=== PATIENT | female | born 1985 | race African-American/Black ===

== ENCOUNTER 2017-01-11 18:11 | Emergency (ER) | payer SELFPAY ==
[~2017-01-11] VITALS: Ht 170.2 cm; Wt 99.0 kg
[2017-01-11 19:01] VITALS: BP 93/56
== END 2017-01-11 23:00 | disposition left against medical advice (07) ==
LOC: ER 18:11
DX: M79.644 Pain in right finger(s) (principal); Z53.21 Procedure and treatment not carried out due to patient leaving prior to being seen by health care provider; Z33.1 Pregnant state, incidental

== ENCOUNTER 2017-06-29 04:24 | Inpatient (IN) | payer MEDICAID ==
[~2017-06-29] VITALS: Ht 170.2 cm; Wt 104.3 kg
[2017-06-29] MEDS ORDERED: DEXT 5%/LR + PITOCIN 20UNITS/L 1,000 ML IV SCH ×2 (04:57→21:30)
[2017-06-29] MEDS ORDERED: BUTORPHANOL TARTRATE 2 MG/ML VIAL IV PRN (05:00)
[2017-06-29] MEDS ORDERED: NALOXONE HCL 0.4 MG/ML 1ML VIAL IM PRN (05:00)
[2017-06-29] MEDS ORDERED: LIDOCAINE HCL 1% 20ML VIAL (Pyxis) INJ INFIL SCH (05:00)
[2017-06-29] MEDS ORDERED: DEXTROSE IV SCH (05:30)
[2017-06-29] MEDS ORDERED: WATER IV SCH (05:30)
[2017-06-29] MEDS ORDERED: PENICILLIN POTASSIUM IV SCH (05:30)
[2017-06-29 05:45] LABS: CLARITY URINE CLEAR (CLEAR); COLOR URINE YELLOW (YELLOW); KETONES URINE TRACE (NEGATIVE); LEUKOCYTE ESTERASE URINE 2+ (NEGATIVE); NITRITE URINE NEGATIVE (NEGATIVE); OCCULT BLOOD URINE 3+ (NEGATIVE); PROTEIN URINE NEGATIVE (NEGATIVE); SPECIFIC GRAVITY URINE 1.006 (1.005-1.030); UROBILINOGEN URINE 0.2 E.U./dL (0.2-1.0)
[2017-06-29 06:11] LABS: *AMPHETAMINES SCREEN URINE NEGATIVE (NEGATIVE); *BARBITURATES SCREEN URINE NEGATIVE (NEGATIVE); *BENZODIAZEPINES SCREEN URINE NEGATIVE (NEGATIVE); *COCAINE SCREEN URINE NEGATIVE (NEGATIVE); METHADONE URINE SCREEN NEGATIVE (NEGATIVE); OPIATES URINE SCREEN NEGATIVE (NEGATIVE); PHENCYCLIDINE URINE SCREEN NEGATIVE (NEGATIVE)
[2017-06-29 06:12] LABS: CANNABINOID URINE SCREEN PRESUMTIVE POSITIVE (NEGATIVE)
[2017-06-29 07:14] LABS: BASOPHILS % 0.4 % (0.0-2.0); EOSINOPHILS % 0.1 % (0.0-5.0); HEMATOCRIT. 38.1 % (36.0-48.0); HEMOGLOBIN. 12.8 g/dL (12.0-16.0); LYMPHOCYTES % 10.6 % (20.0-50.0); MEAN CORPUSCULAR HEMOGLOBIN 26.9 pg (28.0-32.0); MEAN CORPUSCULAR VOLUME 80.5 fL (81.0-99.0); NEUTROPHILS % 81.9 % (40.0-76.0); PLATELET 221 x1000/uL (130-400); RED BLOOD CELL COUNT 4.74 mill/uL (4.2-5.4); RED CELL DISTRIBUTION WIDTH 16.3 % (11.6-14.6)
[2017-06-29 08:11] LABS: RUBELLA IGG 48.3 IU/mL (4.99-10)
[2017-06-29 08:12] LABS: HEPATITIS B SURFACE ANTIGEN NEGATIVE
[2017-06-29] MEDS ORDERED: BUPIVACAINE HCL/NS/PF EPIDURAL 100 ML EP ONE ×2 (09:27→19:05)
[2017-06-29] MEDS ORDERED: FENTANYL CITRATE/PF 50MCG/ML 5ML VIAL ONE (09:27)
[2017-06-29] MEDS ORDERED: BUPIVACAINE HCL/PF 0.25% (2.5MG/ML) 10ML ONE (09:27)
[2017-06-29] MEDS: LACTATED RINGERS 1,000 ML IV SCH ×2 (09:57→19:17)
[2017-06-29] MEDS ORDERED: BUPIVACAINE HCL/NS/PF EPIDURAL 100 ML EP SCH (10:15)
[2017-06-29] MEDS: PENICILLIN G POTASSIUM 2.5 MMU in DEXTROSE 5% WATER 50 ML IV SCH ×3 (11:01→20:00)
[2017-06-29 12:52] LABS: PARTIAL THROMBOPLASTIN TIME 30.5 sec (23.4-31.0); PROTHROMBIN TIME 10.4 sec (9.4-11.6)
[2017-06-29 16:00] VITALS: BP 113/71
[2017-06-29] MEDS ORDERED: FENTANYL CITRATE/PF 50MCG/ML 2ML VIAL ONE (19:05)
[2017-06-29] MEDS ORDERED: LIDOCAINE HCL/PF 2% 20MG/ML 5 ML/VIAL ONE (21:56)
[2017-06-30] VITALS (8 sets, daily range): BP systolic 96–128; BP diastolic 62–102
[2017-06-30] MEDS ORDERED: LIDOCAINE HCL/PF 2% 20MG/ML 5 ML/VIAL ONE ×2 (00:12→02:00)
[2017-06-30] MEDS: PENICILLIN G POTASSIUM 2.5 MMU in DEXTROSE 5% WATER 50 ML IV SCH (00:24)
[2017-06-30] MEDS ORDERED: BISACODYL 10MG SUPP PR PRN (03:30)
[2017-06-30] MEDS ORDERED: DEXT 5%/LR + PITOCIN 20UNITS/L 1,000 ML IV SCH (03:30)
[2017-06-30] MEDS ORDERED: BENZOCAINE/LANOLIN/ALOE VERA SPRAY TOP PRN (03:30)
[2017-06-30] MEDS ORDERED: GLYCERIN/WITCH HAZEL LEAF MEDICATED PAD TOP PRN (03:30)
[2017-06-30] MEDS ORDERED: METHYLERGONOVINE MALEATE 0.2 MG/ML IM SCH (03:33)
[2017-06-30] MEDS: ACETAMINOPHEN WITH CODEINE 300/30MG TABLET PO PRN ×5 (04:30→22:56)
[2017-06-30] MEDS ORDERED: METHYLERGONOVINE MALEATE 0.2 MG/ML ONE (06:00)
[2017-06-30] MEDS: SIMETHICONE 80MG TABLET CHEW PO SCH ×5 (09:00→22:57)
[2017-06-30] MEDS: MAGNESIUM/ALUMINUM HYDROXIDE/SIMETHICONE 30ML UDC PO SCH ×4 (09:00→22:58)
[2017-06-30] MEDS: IBUPROFEN 400MG TABLET PO PRN ×2 (10:13→22:55)
[2017-06-30] MEDS: PRENATAL VIT/FE FUMARATE/FA TABLET PO SCH (10:15)
[2017-06-30] MEDS: DOCUSATE SODIUM 100MG CAPSULE PO SCH (22:58)
[2017-07-01] MEDS ORDERED: TETANUS, DIPHTHERIA, PERTUSSIS VAC/PF 0.5ML (>7YR OLD) IM ONE
[2017-07-01 07:16] LABS: BASOPHILS % 0.5 % (0.0-2.0); EOSINOPHILS % 0.1 % (0.0-5.0); HEMATOCRIT. 25.6 % (36.0-48.0); HEMOGLOBIN. 8.4 g/dL (12.0-16.0); LYMPHOCYTES % 18.1 % (20.0-50.0); MEAN CORPUSCULAR HEMOGLOBIN 26.3 pg (28.0-32.0); MEAN CORPUSCULAR VOLUME 80.7 fL (81.0-99.0); MEAN PLATELET VOLUME 8.5 fl (7.4-10.4); MONOCYTES % 5.4 % (2.0-8.0); NEUTROPHILS % 75.9 % (40.0-76.0); PLATELET 127 x1000/uL (130-400); RED BLOOD CELL COUNT 3.18 mill/uL (4.2-5.4); RED CELL DISTRIBUTION WIDTH 15.9 % (11.6-14.6)
[2017-07-01 07:36] VITALS: BP 97/52
[2017-07-01] MEDS: PRENATAL VIT/FE FUMARATE/FA TABLET PO SCH (08:48)
[2017-07-01] MEDS: SIMETHICONE 80MG TABLET CHEW PO SCH ×3 (13:30→22:18)
[2017-07-01] MEDS: FERROUS SULFATE 325MG TABLET PO SCH ×2 (13:30→18:12)
[2017-07-01] MEDS: IBUPROFEN 400MG TABLET PO PRN ×2 (13:36→22:19)
[2017-07-01 16:00] VITALS: BP 100/66
[2017-07-01] MEDS: MAGNESIUM/ALUMINUM HYDROXIDE/SIMETHICONE 30ML UDC PO SCH ×2 (17:00→22:18)
[2017-07-01 19:30] VITALS: BP 98/66
[2017-07-01] MEDS: DOCUSATE SODIUM 100MG CAPSULE PO SCH (22:18)
[2017-07-01 22:28] VITALS: BP 92/47
[2017-07-02 08:30] VITALS: BP 112/72
[2017-07-02] MEDS: PRENATAL VIT/FE FUMARATE/FA TABLET PO SCH (10:29)
[2017-07-02] MEDS: FERROUS SULFATE 325MG TABLET PO SCH (10:29)
[2017-07-06 04:19] LABS: CANNABINOID CONFIRMATION URINE Positive (.)
== END 2017-07-02 11:00 | disposition home or self-care (01) | DRG 560 ==
LOC: L&D 04:24 → OBSVTOIN 04:24 → 7EST PP/OB 06-30 05:30
PROVIDERS: ADMIT Obstetrics & Gynecology; ATTEND Obstetrics & Gynecology
PROC: 0KQM0ZZ Repair Perineum Muscle, Open Approach (ICD-10-PCS; 2017-06-30)
PROC: 3E0R3BZ Introduction of Anesthetic Agent into Spinal Canal, Percutaneous Approach (ICD-10-PCS; 2017-06-30)
PROC: 00HU33Z Insertion of Infusion Device into Spinal Canal, Percutaneous Approach (ICD-10-PCS; 2017-06-30)
PROC: 10E0XZZ Delivery of Products of Conception, External Approach (ICD-10-PCS; principal; 2017-06-30 02:32)
DX: O69.81X0 Labor and delivery complicated by cord around neck, without compression, not applicable or unspecified (principal); D62 Acute posthemorrhagic anemia; O90.81 Anemia of the puerperium; O77.0 Labor and delivery complicated by meconium in amniotic fluid; O70.1 Second degree perineal laceration during delivery; Z3A.38 38 weeks gestation of pregnancy; Z37.0 Single live birth
CPT/HCPCS: 36415; 80305; 80349; 81001; 85025; 85610; 85730; 86592; 86703; 86762; 86850; 86900; 87340; 90715; G0378; J0595; J2210; J2540; J2590; J3010; J3490; J7060; J7120; A4315

== ENCOUNTER 2019-08-28 10:51 | Observation (INO) | payer MEDICAID ==
[~2019-08-28] VITALS: Ht 170.2 cm; Wt 106.1 kg
[2019-08-28] MEDS ORDERED: PREN1TAB78 MT (12:55)
[2019-08-28] MEDS ORDERED: FOLI0.4T2 MT (12:55)
== END 2019-08-28 13:45 | disposition home or self-care (01) ==
LOC: 8 EST LDRP 10:51
PROVIDERS: ADMIT Specialist; ATTEND Specialist
DX: O62.9 Abnormality of forces of labor, unspecified (principal); Z3A.41 41 weeks gestation of pregnancy
CPT/HCPCS: 76815; 76818; 99281; G0378

== ENCOUNTER 2019-09-05 10:50 | Observation (INO) | payer MEDICAID ==
[~2019-09-05] VITALS: Ht 170.2 cm; Wt 106.1 kg
[~2019-09-05 10:50] MED LIST: FOLI0.4T2 MT; PREN1TAB78 MT
== END 2019-09-05 14:10 | disposition home or self-care (01) ==
LOC: 8 EST LDRP 10:50
PROVIDERS: ADMIT Obstetrics & Gynecology; ATTEND Obstetrics & Gynecology
DX: O26.893 Other specified pregnancy related conditions, third trimester (principal); R10.2 Pelvic and perineal pain; M54.5 Low back pain; Z3A.36 36 weeks gestation of pregnancy
CPT/HCPCS: 76805; 76818; 99281; G0378

== ENCOUNTER 2019-09-16 00:39 | Inpatient (IN) | payer MEDICAID ==
[~2019-09-16] VITALS: Ht 170.2 cm; Wt 104.3 kg
[2019-09-16] MEDS ORDERED: DEXT 5%/LR + PITOCIN 20UNITS/L 1,000 ML IV SCH ×2 (01:13→03:50)
[2019-09-16] MEDS ORDERED: METHYLERGONOVINE MALEATE 0.2 MG/ML IM PRN (01:15)
[2019-09-16] MEDS ORDERED: NALOXONE HCL 0.4 MG/ML 1ML VIAL IM PRN (01:15)
[2019-09-16] MEDS ORDERED: LIDOCAINE HCL 1% 20ML VIAL (Pyxis) INJ INFIL SCH (01:15)
[2019-09-16] MEDS: LACTATED RINGERS 1,000 ML IV SCH ×2 (01:29→02:50)
[2019-09-16] MEDS: BUTORPHANOL TARTRATE 2 MG/ML VIAL IV PRN ×2 (01:33→03:46)
[2019-09-16] MEDS ORDERED: AMPICILLIN 2,000 MG in SODIUM CHLORIDE 0.9% 100 ML IV SCH (02:00)
[2019-09-16 02:52] LABS: INR 0.9; PARTIAL THROMBOPLASTIN TIME 25.9 sec (23.4-31.0); PROTHROMBIN TIME 10.1 sec (9.6-11.0)
[2019-09-16 03:13] LABS: BASOPHILS % 0.2 % (0.0-2.0); EOSINOPHILS % 0.8 % (0.0-5.0); HEMATOCRIT. 37.5 % (36.0-48.0); HEMOGLOBIN. 12.3 g/dL (12.0-16.0); LYMPHOCYTES % 25.5 % (20.0-50.0); MEAN CORPUSCULAR HEMOGLOBIN 25.9 pg (28.0-32.0); MEAN CORPUSCULAR VOLUME 78.5 fL (81.0-99.0); MEAN PLATELET VOLUME 8.3 fl (7.4-10.4); NEUTROPHILS % 66.5 % (40.0-76.0); PLATELET 351 x1000/uL (130-400); RED BLOOD CELL COUNT 4.77 mill/uL (4.2-5.4); RED CELL DISTRIBUTION WIDTH 15.8 % (11.6-14.6)
[2019-09-16 03:26] LABS: HEPATITIS B SURFACE ANTIGEN NEGATIVE
[2019-09-16] MEDS ORDERED: RHO(D) IMMUNE GLOBULIN 300 MCG/SYR IM PRN (04:00)
[2019-09-16] MEDS ORDERED: IBUPROFEN 400MG TABLET PO PRN (04:00)
[2019-09-16 06:00] VITALS: BP 111/70
[2019-09-16 06:46] LABS: CLARITY URINE CLEAR (CLEAR); COLOR URINE YELLOW (YELLOW); KETONES URINE NEGATIVE (NEGATIVE); LEUKOCYTE ESTERASE URINE TRACE (NEGATIVE); NITRITE URINE NEGATIVE (NEGATIVE); OCCULT BLOOD URINE NEGATIVE (NEGATIVE); PROTEIN URINE NEGATIVE (NEGATIVE); SPECIFIC GRAVITY URINE 1.021 (1.005-1.030); UROBILINOGEN URINE 0.2 E.U./dL (0.2-1.0)
[2019-09-16 07:03] LABS: *AMPHETAMINES SCREEN URINE NEGATIVE (NEGATIVE); *BARBITURATES SCREEN URINE NEGATIVE (NEGATIVE); PHENCYCLIDINE URINE SCREEN NEGATIVE (NEGATIVE)
[2019-09-16 07:04] LABS: *BENZODIAZEPINES SCREEN URINE NEGATIVE (NEGATIVE); *COCAINE SCREEN URINE NEGATIVE (NEGATIVE); METHADONE URINE SCREEN NEGATIVE (NEGATIVE); OPIATES URINE SCREEN NEGATIVE (NEGATIVE)
[2019-09-16 07:10] LABS: CANNABINOID URINE SCREEN PRESUMTIVE POSITIVE (NEGATIVE)
[2019-09-16 07:31] VITALS: BP 120/65
[2019-09-16] MEDS: IBUPROFEN 800MG TABLET PO PRN ×3 (08:34→21:54)
[2019-09-16 16:14] VITALS: BP 96/52
[2019-09-16 20:00] VITALS: BP 112/57
[2019-09-17 04:00] VITALS: BP 124/84
[2019-09-17 07:28] VITALS: BP 107/56
[2019-09-17 08:04] LABS: HEMATOCRIT. 33.1 % (36.0-48.0); MEAN CORPUSCULAR HEMOGLOBIN 26.3 pg (28.0-32.0); MEAN CORPUSCULAR VOLUME 79.3 fL (81.0-99.0); MEAN PLATELET VOLUME 8.1 fl (7.4-10.4); PLATELET 315 x1000/uL (130-400); RED BLOOD CELL COUNT 4.17 mill/uL (4.2-5.4); RED CELL DISTRIBUTION WIDTH 16.1 % (11.6-14.6)
[2019-09-17] MEDS: IBUPROFEN 800MG TABLET PO PRN (08:38)
[2019-09-17 12:55] LABS: NUCLEATED RED BLOOD CELLS 1 /100 WBC; PLATELET ESTIMATE NORMAL
[2019-09-17] MEDS ORDERED: IBUP-2030 PO (15:29)
[2019-09-21 04:11] LABS: CANNABINOID CONFIRMATION URINE Positive (.)
== END 2019-09-17 16:20 | disposition home or self-care (01) | DRG 560 ==
LOC: OBSVTOIN 00:39 → 8 EST LDRP 00:39 → 8EST 06:00
PROVIDERS: ADMIT Obstetrics & Gynecology; ATTEND Obstetrics & Gynecology
PROC: 10E0XZZ Delivery of Products of Conception, External Approach (ICD-10-PCS; principal; 2019-09-16)
PROC: 10907ZC Drainage of Amniotic Fluid, Therapeutic from Products of Conception, Via Natural or Artificial Opening (ICD-10-PCS; 2019-09-16)
DX: O99.324 Drug use complicating childbirth (principal); E66.01 Morbid (severe) obesity due to excess calories; O99.214 Obesity complicating childbirth; O77.0 Labor and delivery complicated by meconium in amniotic fluid; O69.81X0 Labor and delivery complicated by cord around neck, without compression, not applicable or unspecified; F12.10 Cannabis abuse, uncomplicated; Z37.0 Single live birth; Z3A.38 38 weeks gestation of pregnancy
CPT/HCPCS: 36415; 76815; 80305; 80349; 81003; 85025; 86592; 86703; 86762; 86850; 86900; 87340; 99281; G0378; J0290; J0595; J2590; J7050

== ENCOUNTER 2021-06-01 04:40 | Inpatient (IN) | payer MEDICAID ==
[~2021-06-01] VITALS: Ht 170.2 cm; Wt 117.9 kg
[~2021-06-01 04:40] MED LIST changes: -FOLI0.4T2 MT; +FOLI0.4T6 MT; +IBUP-2030 PO
[2021-06-01] MEDS ORDERED: BUTORPHANOL TARTRATE 2 MG/ML VIAL IV PRN (05:00)
[2021-06-01] MEDS ORDERED: DEXT 5%/LR + PITOCIN 20UNITS/L 1,000 ML IV SCH ×2 (05:00→08:30)
[2021-06-01] MEDS ORDERED: NALOXONE HCL 0.4 MG/ML 1ML VIAL IM PRN (05:00)
[2021-06-01] MEDS ORDERED: METHYLERGONOVINE MALEATE 0.2 MG/ML IM PRN (05:00)
[2021-06-01] MEDS ORDERED: CARBOPROST TROMETHAMINE 250 MCG/ML AMPUL IM PRN (05:00)
[2021-06-01] MEDS ORDERED: LACTATED RINGERS 1,000 ML IV SCH ×2 (05:00→05:30)
[2021-06-01] MEDS ORDERED: LIDOCAINE HCL 1% 20ML VIAL (Pyxis) INJ INFIL SCH (05:30)
[2021-06-01] MEDS ORDERED: PENICILLIN G POTASSIUM 5 MMU in DEXT 5% WATER 100 ML IV SCH (05:30)
[2021-06-01 05:36] LABS: BASOPHILS % 0.3 % (0.0-2.0); EOSINOPHILS % 0.2 % (0.0-5.0); HEMATOCRIT. 38.3 % (36.0-48.0); HEMOGLOBIN. 12.3 g/dL (12.0-16.0); LYMPHOCYTES % 20.4 % (20.0-50.0); MEAN CORPUSCULAR HEMOGLOBIN 25.1 pg (28.0-32.0); MEAN PLATELET VOLUME 8.9 fl (7.4-10.4); MONOCYTES % 4.9 % (2.0-8.0); NEUTROPHILS % 74.2 % (40.0-76.0); PLATELET 296 x1000/uL (130-400); RED BLOOD CELL COUNT 4.91 mill/uL (4.2-5.4); RED CELL DISTRIBUTION WIDTH 16.7 % (11.6-14.6)
[2021-06-01 05:42] LABS: CHLORIDE 108 mEq/L (98-107)
[2021-06-01 05:44] LABS: CLARITY URINE CLOUDY (CLEAR); COLOR URINE ORANGE (YELLOW); KETONES URINE TRACE (NEGATIVE); LEUKOCYTE ESTERASE URINE 3+ (NEGATIVE); NITRITE URINE NEGATIVE (NEGATIVE); OCCULT BLOOD URINE 3+ (NEGATIVE); PROTEIN URINE 1+ (NEGATIVE); SPECIFIC GRAVITY URINE 1.022 (1.005-1.030)
[2021-06-01 05:58] LABS: *BARBITURATES SCREEN URINE NEGATIVE (NEGATIVE); *BENZODIAZEPINES SCREEN URINE NEGATIVE (NEGATIVE); *COCAINE SCREEN URINE NEGATIVE (NEGATIVE); METHADONE URINE SCREEN NEGATIVE (NEGATIVE); OPIATES URINE SCREEN NEGATIVE (NEGATIVE)
[2021-06-01 05:59] LABS: PHENCYCLIDINE URINE SCREEN NEGATIVE (NEGATIVE)
[2021-06-01 06:08] LABS: *AMPHETAMINES SCREEN URINE PRESUMTIVE POSITIVE (NEGATIVE); CANNABINOID URINE SCREEN PRESUMTIVE POSITIVE (NEGATIVE)
[2021-06-01 06:18] LABS: HEPATITIS B SURFACE ANTIGEN NEGATIVE
[2021-06-01] MEDS ORDERED: IBUPROFEN 400MG TABLET PO PRN (08:30)
[2021-06-01] MEDS ORDERED: RHO(D) IMMUNE GLOBULIN 300 MCG/SYR IM PRN (08:30)
[2021-06-01] MEDS ORDERED: PRENATAL VIT/FE FUMARATE/FA TABLET PO SCH (09:00)
[2021-06-01] MEDS: IBUPROFEN 800MG TABLET PO PRN (09:42)
[2021-06-01] MEDS ORDERED: PENICILLIN G POTASSIUM 2.5 MMU in DEXTROSE 5% WATER 50 ML IV SCH (10:00)
[2021-06-01] MEDS ORDERED: HYDRALAZINE 20MG/ML VIAL IV NR (10:15)
[2021-06-01 11:30] VITALS: BP 119/73
[2021-06-01 11:39] LABS: PARTIAL THROMBOPLASTIN TIME 29.1 sec (23.4-31.0); PROTHROMBIN TIME 10.7 sec (9.6-11.0)
[2021-06-01 12:15] VITALS: BP 116/63
[2021-06-01 14:17] VITALS: BP 127/68
[2021-06-01 20:00] VITALS: BP 107/65
[2021-06-02] MEDS: IBUPROFEN 800MG TABLET PO PRN ×2 (00:31→08:04)
[2021-06-02 04:00] VITALS: BP 111/76
[2021-06-02 06:48] LABS: BASOPHILS % 0.4 % (0.0-2.0); EOSINOPHILS % 0.8 % (0.0-5.0); HEMATOCRIT. 32.3 % (36.0-48.0); HEMOGLOBIN. 10.3 g/dL (12.0-16.0); LYMPHOCYTES % 27.2 % (20.0-50.0); MEAN CORPUSCULAR HEMOGLOBIN 24.7 pg (28.0-32.0); MEAN CORPUSCULAR VOLUME 77.6 fL (81.0-99.0); MEAN PLATELET VOLUME 8.8 fl (7.4-10.4); MONOCYTES % 5.1 % (2.0-8.0); NEUTROPHILS % 66.5 % (40.0-76.0); PLATELET 264 x1000/uL (130-400); RED BLOOD CELL COUNT 4.17 mill/uL (4.2-5.4); RED CELL DISTRIBUTION WIDTH 16.5 % (11.6-14.6)
[2021-06-02 07:41] VITALS: BP 105/51
== END 2021-06-02 10:10 | disposition left against medical advice (07) | DRG 560 ==
LOC: OBSVTOIN 04:40 → 8 EST LDRP 04:40 → 8EST 12:08
PROVIDERS: ADMIT Obstetrics & Gynecology; ATTEND Obstetrics & Gynecology
PROC: 10E0XZZ Delivery of Products of Conception, External Approach (ICD-10-PCS; principal; 2021-06-01)
DX: O99.324 Drug use complicating childbirth (principal); Z37.0 Single live birth; F12.90 Cannabis use, unspecified, uncomplicated; Z20.822 Contact with and (suspected) exposure to COVID-19; Z53.29 Procedure and treatment not carried out because of patient's decision for other reasons; F15.90 Other stimulant use, unspecified, uncomplicated; Z3A.39 39 weeks gestation of pregnancy
CPT/HCPCS: 36415; 80053; 80305; 80349; 81003; 84550; 85025; 85384; 86592; 86703; 86762; 86850; 86900; 87340; 87426; 99281; G0378; J0360; J0595; J2540; J2590; J3490; J7060; J7120